=== PATIENT | female | born 1965 | race Two or more races ===

== ENCOUNTER 2022-08-29 21:22 | Emergency (ER) | payer OTHER ==
[~2022-08-29] VITALS: Ht 160 cm; Wt 54.9 kg
[~2022-08-29 21:22] MED LIST: KETO10TA2 PO; ORPH100T PO
[2022-08-30] MEDS ORDERED: ASA325 M1 PO (08:23)
[2022-08-30] MEDS ORDERED: PERCOCET 5-3251 EACH PO (08:23)
[2022-08-30] MEDS ORDERED: DUI500 PO (08:23)
[2022-08-30] MEDS ORDERED: WHEELCHAIR (08:25)
[2022-08-30] MEDS ORDERED: ULTRA-LIGHT RO1 EACH {1, null} (08:25)
[2022-08-31] MEDS ORDERED: ASA325 M1 PO (18:03)
[2022-08-31] MEDS ORDERED: DUI500 PO (18:03)
[2022-08-31] MEDS ORDERED: PERCOCET 5-3251 EACH PO (18:03)
== END 2022-08-30 09:16 | disposition home or self-care (01) ==
LOC: ER 21:22
DX: S82.851A Displaced trimalleolar fracture of right lower leg, initial encounter for closed fracture (principal); W18.30XA Fall on same level, unspecified, initial encounter; Y93.9 Activity, unspecified; Y92.019 Unspecified place in single-family (private) house as the place of occurrence of the external cause; R07.89 Other chest pain